=== PATIENT | female | born 1950 | race American Indian/Alaskan Native ===

== ENCOUNTER 2018-11-25 08:20 | Outpatient (CLI) | payer MEDICARE | END 2018-11-25 08:21 | disposition home or self-care (01) | LOC: RAD 08:20 ==

== ENCOUNTER 2018-12-04 11:43 | Inpatient (IN) | payer MEDICARE, MEDICAID ==
[2018-12-04] MEDS: Albuterol-Ipratrop 3 mg / 0.5 (3 ml) UD IH SCH ×3 (12:23→13:33)
[2018-12-04] MEDS ORDERED: Albuterol 0.083% Inhal Sol (2.5 mg/3 mL) UD INH STA (12:40)
[2018-12-04] MEDS ORDERED: Sodium Chloride 0.9% 1,000 ML IV STA (12:42)
--- NOTE | 2018-12-04 12:50 | ED PDOC ---
Arrival/HPI - General Chief Complaint: Dizziness/Lightheaded Historian: Patient - History of Present Illness Narrative History of Present Illness (Text): 12/04/18 12:53 68 year old female, whose past medical history includes hypertension, hyperlipidemia, diabetes, asthma, COPD and left lower extremity weakness post CVA, who presents to the emergency department complaining of shortness of breath and dizziness. Patient states earlier today she began feeling dizzy(which she had been experiencing intermittently for the past 2 weeks), the room was spinni ng, diaphoretic, and shortness of breath, which almost prompted a near syncopal episode. She notes secondary headache that radiates to her neck and shoulders and abdominal pain. Patient denies any fevers, chills, chest pain, nausea, vomiting, diarrhea, or any other complaint. PMD: Dr. Walton Specialist: Dr. Pepper Nguyễn(neurology) Time/Duration: Prior to Arrival Symptom Onset: Gradual Symptom Course: Unchanged Activities at Onset: Light Context: Home Past Medical History - Provider Review Nursing Documentation Reviewed: Yes - Travel History Have you recently traveled outside [place] w/in the past 3 mons?: No - Tetanus Immunization Tetanus Immunization: Unknown - Cardiac Hx Hypertension: Yes - Pulmonary Hx Asthma: Yes Hx Chronic Obstructive Pulmonary Disease (COPD): Yes - Neurological HX Cerebrovascular Accident: Yes (10/11/12) - HEENT Hx HEENT Disorder: No - Renal Hx Renal Disorder: No - Endocrine/Metabolic Hx Diabetes Mellitus Type 2: Yes Hx Hypothyroidism: Yes - Hematological/Oncological Hx Blood Disorders: No - Integumentary Hx Dermatological Disorder: No - Musculoskeletal/Rheumatological Hx Musculoskeletal Disorders: Yes Hx Back Pain: Yes Hx Degenerative Joint Disease: Yes Hx Falls: Yes Hx Unsteady Gait: Yes - Gastrointestinal Hx Gastrointestinal Disorders: No - Genitourinary/Gynecological Hx Genitourinary Disorders: Yes Other/Comment: Hysterectomy 2010 - Psychiatric Hx Psychophysiologic Disorder: Yes Hx Anxiety: Yes Hx Panic Disorder: Yes Hx Substance Use: No - Surgical History Hx Hysterectomy: Yes (2009) - Suicidal Assessment Feels Threatened In Home Enviroment: No Family/Social History - Physician Review Nursing Documentation Reviewed: Yes Family/Social History: No Known Family HX Smoking Status: Former Smoker Hx Alcohol Use: No Hx Substance Use: No Hx Substance Use Treatment: No Allergies/Home Meds Allergies/Adverse Reactions: Allergies budesonide [From Pulmicort] Adverse Reaction (Verified 12/06/18 20:17) VOMITING Home Medications: Home Meds Medication Instructions Recorded Confirmed Albuterol HFA [Ventolin HFA 90 90 mcg IH PRN PRN 12/04/18 12/04/18 mcg/actuation (8 g)] Albuterol/Ipratropium [Combivent 200 mcg IH PRN PRN 12/04/18 12/04/18 Respimat] Aspirin [Aspirin EC] 325 mg PO DAILY 12/04/18 12/04/18 Calcium Carbonate [Caltrate] 600 mg PO DAILY 12/04/18 12/04/18 Cholecalciferol [Vitamin D 1000 IU] 5,000 iu PO DAILY 12/04/18 12/04/18 Clopidogrel [Plavix] 75 mg PO DAILY 12/04/18 12/04/18 Famotidine [Pepcid] 40 mg PO DAILY 12/04/18 12/04/18 Levothyroxine [Synthroid] 125 mcg PO DAILY 12/04/18 12/04/18 Linagliptin [Tradjenta] 5 mg PO DAILY 12/04/18 12/04/18 Montelukast [Singulair] 10 mg PO DAILY 12/04/18 12/04/18 Simvastatin [Zocor] 40 mg PO DAILY 12/04/18 12/04/18 Review of Systems - Review of Systems Constitutional: absent: Fevers Respiratory: SOB Cardiovascular: absent: Chest Pain Gastrointestinal: Abdominal Pain. absent: Diarrhea, Nausea, Vomiting Neurological: Headache, Dizziness. absent: Speech Changes, Facial Droop Physical Exam Vital Signs Reviewed: Yes Vital Signs Temp Pulse Resp BP Pulse Ox 12/04/18 11:57 98.5 F 87 18 119/75 98 Temperature: Afebrile Blood Pressure: Normal Pulse: Regular Respiratory Rate: Normal Appearance: Positive for: Well-Appearing, Non-Toxic, Comfortable Pain Distress: None Mental Status: Positive for: Alert and Oriented X 3 - Systems Exam Head: Present: Atraumatic, Normocephalic Pupils: Present: PERRL Extroacular Muscles: Present: EOMI Conjunctiva: Present: Normal Mouth: Present: Moist Mucous Membranes Neck: Present: Normal Range of Motion Respiratory/Chest: Present: Clear to Auscultation, Wheezes (faint expiratory wheezes), Decreased Breath Sounds (diminished breath sounds bilaterally). No: Respiratory Distress, Accessory Muscle Use, Rales, Rhonchi Cardiovascular: Present: Regular Rate and Rhythm, Normal S1, S2. No: Murmurs Abdomen: Present: Tenderness (right upper quadrant tenderness). No: Distention, Peritoneal Signs, Rebound, Guarding Back: Present: Normal Inspection Upper Extremity: Present: Normal Inspection. No: Cyanosis, Edema Lower Extremity: Present: Normal Inspection, Other (brace on left lower extremity ). No: Edema Neurological: Present: GCS=15, CN II-XII Intact, Speech Normal (no dysarthria ), Motor Func Grossly Intact (3/5 tank bottom assembler on left upper extremity and leftt lower extremity, 5/5 in right upper & right lower extremity), Normal Sensory Function, Other (face is symmetrical ) Skin: Present: Warm, Dry, Normal Color. No: Rashes Psychiatric: Present: Alert, Oriented x 3, Normal Insight, Normal Concentration Medical Decision Making ED Course and Treatment: 12/04/18 12:47 Impression: 68 year old female who presents to the emergency department complaining of dizziness and shortness of breath. NIHSS: 2 Differential Diagnosis included but are not limited to: TIA Asthma Exacerbation Plan: -- Head CT w/o contrast -- Labs -- Chest X-ray -- Albuterol -- Antivert -- duoneb -- Reglan -- IV fluids -- Toradol -- predniSONE tab -- Urinalysis -- Reassess and disposition Prior Visits: Notes and results from previous visits were reviewed. Progress Notes: 12/04/18 14:35 Labs reviewed with no acute leukocytosis or electrolyte abnormalities. Due to patient's havig residual left sided weakness from her previous CVA and her symptoms ongoing for an extended amount of time and presents with no acute worsening symptoms or focal deficits that would warrant a Code Stroke at this time. There is no worsening of her left sided limb weakness, dysarthria or facial asymmetry at this time. Discussed patient case with Dr. Walton(PCP) who accepts patient for admission and requests Dr. Krish Nguyễn for neuro consult. - Lab Interpretations Lab Results: 12/04/18 13:46 12/04/18 13:46 Lab Results 12/04/18 14:15: Urine Color Yellow, Urine Appearance Clear, Urine pH 7.0, Ur Specific [place] 1.010, Urine Protein Negative, Urine Glucose (UA) Negative, Urine Ketones Negative, Urine Blood Negative, Urine Nitrate Negative, Urine Bilirubin Negative, Urine Urobilinogen 0.2, Ur Leukocyte Esterase Small H, Urine RBC 0 - 2, Urine WBC 10 - 15 H, Ur Epithelial Cells 6 - 8 H, Urine Bacteria Mod 12/04/18 13:46: Sodium 139, Potassium 4.9, Chloride 107, Carbon Dioxide 28, Anion Gap 10, BUN 14, Creatinine 1.0, Est GFR ( Amer) > 60, Est GFR (Non- Af Amer) 55, Random Glucose 117 H, Calcium 9.5, Total Bilirubin 0.3, AST 17, ALT 23, Alkaline Phosphatase 93, NT-Pro-B Natriuret Pep 64.6, Total Protein 6.9, Albumin 3.9, Globulin 3.1, Albumin/Globulin Ratio 1.3 12/04/18 13:46: WBC 9.4, RBC 3.89, Hgb 11.7 L, Hct 36.6, MCV 94.1, MCH 30.1, MCHC 32.0, RDW 14.8 H, Plt Count 346, MPV 9.8, Neut % (Auto) 68.2 H, Lymph % (Auto) 26.5, [place] % (Auto) 4.6, Eos % (Auto) 0.5 L, Baso % (Auto) 0.2, Lymph # (Auto) 2.5, [place] # (Auto) 0.4, Eos # (Auto) 0.1, Baso # (Auto) 0.02, Absolute Neuts (auto) 6.40 I have reviewed the lab results: Yes - RAD Interpretation Narrative RAD Interpretations (Text): 12/04/18 13:[address] w/o contrast reviewed by radiologist, shows: IMPRESSION: No acute intracranial findings 12/04/18 14:06 Chest X-ray reviewed by radiologist, shows: IMPRESSION: No active disease. Radiology Orders: 12/04/18 12:41 HEAD W/O CONTRAST [CT] Stat CHEST ONE VIEW [RAD] Stat Substation Operator Apprentice: Radiologist - EKG Interpretation EKG Interpretation (Text): 12/04/18 14:40 EKG performed at 12:08 reviewed by me, shows: NSR at 78bpm with no ST elevations and peaked T waves in V3-V4. Interpreted by ED Physician: Yes Type: 12 lead EKG - Medication Orders Current Medication Orders: Sodium Chloride (Sodium Chloride 0.9%) 1,000 mls @ 999 mls/hr IV .Q1H1M STA Stop: 12/04/18 13:42 Metoclopramide HCl (Reglan) 10 mg IVP STAT STA Stop: 12/04/18 12:42 Discontinued Medications Albuterol Sulfate (Albuterol 0.083% Inhal Mana (2.5 Mg/3 Ml) Ud) 2.5 mg INH STAT STA Stop: 12/04/18 12:41 Albuterol/Ipratropium (Duoneb 3 Mg/0.5 Mg (3 Ml) Ud) 3 ml IH Q15M CARLA Stop: 12/04/18 12:46 Last Admin: 12/04/18 12:42 Dose: 3 ml Ketorolac Tromethamine (Toradol) 30 mg IVP STAT STA Stop: 12/04/18 12:42 Meclizine HCl (Antivert) 25 mg PO STAT STA Stop: 12/04/18 12:11 Last Admin: 12/04/18 12:23 Dose: 25 mg Prednisone (Prednisone Tab) 60 mg PO STAT ONE Stop: 12/04/18 12:11 Last Admin: 12/04/18 12:20 Dose: 60 mg NIHSS Stroke Scale 3 - Date/Time Evaluation Performed Date Performed: 12/04/18 Time Performed: 12:00 When Was NIHSS Performed: Baseline - How Severe is the Stroke Level of Consciousness: 0=Alert LOC to Questions: 0=Both comments correct LOC to commands: 0=Obeys both correctly Best Gaze: 0=Normal Visual: 0=No visual loss Facial: 0=Normal Motor Arm - Left: 1=Drift noted before 10 sec Motor Arm - Right: 0=No drift Motor Leg - Left: 1=Drift before 5 sec Motor Leg - Right: 0=No drift Limb Ataxia: 0=Absent Sensory: 0=Normal Best Language: 0=No aphasia Dysarthia: 0=Normal articulation Extinction & Inattention (Neglect): 0=Normal, no object Score: 2 - Scribe Statement The provider has reviewed the documentation as recorded by the Scribbilly Rosado Provider Scribe Attestation: All medical record entries made by the Scribe were at my direction and personally dictated by me. I have reviewed the chart and agree that the record accurately reflects my personal performance of the history, physical exam, medical decision making, and the department course for this patient. I have also personally directed, reviewed, and agree with the discharge instructions and disposition. Disposition/Present on Arrival - Present on Arrival Any Indicators Present on Arrival: No History of DVT/PE: No History of Uncontrolled Diabetes: No Urinary Catheter: No History of Decub. Ulcer: No History Surgical Site Infection Following: None - Disposition Have Diagnosis and Disposition been Completed?: Yes Diagnosis: TIA (transient ischemic attack) Disposition: HOSPITALIZED Disposition Time: 14:30 Patient Plan: Admission Condition: FAIR
--- NOTE | 2018-12-04 13:20 | CT ---
Date of service: 12/04/2018 PROCEDURE: CT HEAD WITHOUT CONTRAST. HISTORY: headache COMPARISON: 11/10/2016 TECHNIQUE: Axial computed tomography images were obtained through the head/brain without intravenous contrast. Radiation dose: Total exam DLP = 843.84 mGy-cm. This CT exam was performed using one or more of the following dose reduction techniques: Automated exposure control, adjustment of the mA and/or kV according to patient size, and/or use of iterative reconstruction technique. FINDINGS: HEMORRHAGE: No intracranial hemorrhage. BRAIN: No mass effect or edema. Chronic microvascular changes are seen in the periventricular white matter. VENTRICLES: Unremarkable. No hydrocephalus. CALVARIUM: Unremarkable. PARANASAL SINUSES: Unremarkable as visualized. No significant inflammatory changes. MASTOID AIR CELLS: Unremarkable as visualized. No inflammatory changes. OTHER FINDINGS: None. IMPRESSION: No acute intracranial findings
--- NOTE | 2018-12-04 13:59 | RAD ---
Date of service: 12/04/2018 PROCEDURE: CHEST RADIOGRAPH, 1 VIEW HISTORY: cough COMPARISON: 11/10/2016 FINDINGS: LUNGS: Clear. PLEURA: No pneumothorax or pleural fluid seen. CARDIOVASCULAR: No aortic atherosclerotic calcification present. Normal. OSSEOUS STRUCTURES: No significant abnormalities. VISUALIZED UPPER ABDOMEN: Normal. OTHER FINDINGS: None. IMPRESSION: No active disease.
[2018-12-04 14:05] LABS: BASO # 0.02 K/mm3 (0.0-2.0); BASO % 0.2 % (0.0-3.0); EOS # 0.1 (0.0-0.7); EOS % 0.5 % (1.5-5.0); HEMOGLOBIN 11.7 g/dL (12.0-16.0); LYMPH # 2.5 (1.2-3.4); LYMPH % 26.5 % (22.0-35.0); MEAN CELL VOLUME 94.1 fl (80.0-105.0); MEAN CORPUSCULAR HEMOGLOBIN 30.1 pg (25.0-35.0); MEAN PLATELET VOLUME 9.8 fl (7.0-11.0); MONO # 0.4 (0.1-0.6); MONO % 4.6 % (1.0-6.0); RBC 3.89 10^6/uL (3.5-6.1); RED CELL DISTRIBUTION WIDTH 14.8 % (11.5-14.5); WHITE BLOOD COUNT 9.4 10^3/uL (4.5-11.0)
[2018-12-04 14:08] LABS: ALB/GLOB RATIO 1.3 (1.1-1.8); ALBUMIN 3.9 g/dL (3.0-4.8); ALT/SGPT 23 U/L (7-56); AST/SGOT 17 U/L (14-36); BLOOD UREA NITROGEN 14 mg/dL (7-21); CALCIUM 9.5 mg/dL (8.4-10.5); GFR NON-AFRICAN AMERICAN 55
[2018-12-04 14:17] LABS: B-TYPE NATRIURETIC PEPTIDE 64.6 pg/mL (0-450)
[2018-12-04 14:21] LABS: URINE BILIRUBIN NEGATIVE (NEGATIVE); URINE BLOOD NEGATIVE (NEGATIVE); URINE GLUCOSE (UA) NEGATIVE (NEGATIVE); URINE LEUKOCYTE ESTERASE SMALL Leu/uL (NEGATIVE); URINE PROTEIN NEGATIVE mg/dL (<30 mg/dL); URINE UROBILINOGEN 0.2 E.U./dL (<1 E.U./dL)
[2018-12-04 14:23] LABS: URINE APPEARANCE CLEAR (CLEAR); URINE COLOR YELLOW (YELLOW)
[2018-12-04 14:26] LABS: URINE BACTERIA MOD /hpf; URINE RBC 0 - 2 /hpf (0-2)
[2018-12-04] MEDS ORDERED: Dextrose 50% SYRINGE Inj (50 ml) IV PRN (16:04)
[2018-12-04 16:13] LABS: HDL CHOLESTEROL 46 mg/dL (29-60)
[2018-12-04 16:24] LABS: LDL CHOLESTEROL 67 mg/dL (0-129)
[2018-12-04 16:25] VITALS: BMI 32.5
[2018-12-04] MEDS: Albuterol 0.083% Inhal Sol (2.5 mg/3 mL) UD INH SCH (19:57)
--- NOTE | 2018-12-04 22:18 | CARD ---
APPROVED REPORT Date of service: 12/04/2018 EKG Measurement Heart [id number] <Conclusion> Normal sinus rhythm Normal ECG
--- NOTE | 2018-12-04 23:22 | CON ---
DATE: 12/04/2018 HISTORY OF PRESENT ILLNESS: A 68-year-old black female with past medical history of hypertension, hyperlipidemia, diabetes, asthma, COPD, and had previous stroke with residual left-sided weakness, came to the emergency room with complaining of dizziness, and feeling dizzy for the past 1 or 2 weeks and also felt today spinning of the sensation and shortness of breath and almost near syncopal episode, came to the hospital. PAST MEDICAL HISTORY: As above. ALLERGIES: NO KNOWN DRUG ALLERGIES. HOME MEDICATIONS: Aspirin, Pepcid, Synthroid, Zocor, Norvasc, and hydralazine. LABORATORY DATA: WBC 9.4, hemoglobin 11.7, hematocrit 36.6 ,and platelets 346. Sodium 139, potassium 4.9, chloride 107, CO2 of 28, glucose 117, BUN 14, creatinine 1. CAT scan of the head was done which did not show any acute findings. IMPRESSION AND PLAN: Dizziness, less likely may be a presyncopal episode. CAT scan showed no bleed or stroke. Workup in progress. Continue present management. We will follow up. Justus Nguyễn MD
[2018-12-05] MEDS: Albuterol 0.083% Inhal Sol (2.5 mg/3 mL) UD INH SCH ×6 (01:46→23:32)
[2018-12-05 08:56] LABS: TROPONIN I < 0.01 ng/mL
[2018-12-05] MEDS: Cholecalciferol 1,000 INTLU TAB PO SCH (10:05)
[2018-12-05] MEDS: Aspirin 325 mg EC Tablets PO SCH (10:05)
[2018-12-05] MEDS: Levothyroxine 125 MCG TAB PO SCH (10:06)
[2018-12-05] MEDS ORDERED: Dextrose 50% SYRINGE Inj (50 ml) IV PRN (12:47)
[2018-12-05] MEDS ORDERED: Insulin Detemir 100 units/ml Vial (Levemir) SC SCH (13:00)
[2018-12-05] MEDS: Insulin Lispro (humaLOG) LOW Coverage SC SCH ×3 (14:06→22:00)
[2018-12-05] MEDS: Albuterol-Ipratrop 3 mg / 0.5 (3 ml) UD IH SCH (19:51)
[2018-12-05] MEDS: Insulin Detemir 100 units/ml Vial (Levemir) SC SCH (22:59)
[2018-12-06] MEDS: Albuterol 0.083% Inhal Sol (2.5 mg/3 mL) UD INH SCH ×2 (01:16→07:57)
--- NOTE | 2018-12-06 03:55 | CON ---
DATE OF CONSULTATION: 12/05/2018 CARDIOLOGY CONSULTATION REASON FOR CONSULTATION: Dizziness. HISTORY OF PRESENT ILLNESS: The patient is a 68-year-old female, who has history of hypertension, history of CVA in 2012 with residual left hemiparesis, for which the patient uses a left leg bracelet. The patient presents because of dizziness for the past 3 days. She denies any imbalance, speech difficulty, or new arm or leg weakness. The patient is unaware of any history of heart attack in the past and denies any retrosternal chest pain. The patient does not recall experiencing palpitation given her dizziness. SOCIAL HISTORY: Nonsmoker. MEDICATIONS: Albuterol inhaler every 6 hours p.r.n., aspirin 625 mg once a day, Lipitor 20 mg once a day, Norvasc at 5 mg once a day, Pepcid 20 mg once a day, Plavix 75 mg once a day, Synthroid 125 mcg once a day, vitamin D 5000 international units orally daily. SOCIAL HISTORY: The patient is a former smoker, who quit after she had her stroke in 2014. REVIEW OF SYSTEMS: No fever or chills. No nausea or vomiting. PHYSICAL EXAMINATION: GENERAL: The patient is an elderly female, who does not appear to be in acute distress. VITAL SIGNS: Blood pressure 138/81, heart rate 86, temperature 98.7, respirations 20. HEENT: Normocephalic. CHEST: Clear. HEART: S1 and S2 are regular. ABDOMEN: Soft. EXTREMITIES: Show no edema. LABORATORY DATA: SMA-7 is entirely within normal limits except for a glucose of 117. Lipid profile is within normal limits. One set of troponin is negative. Admitting hemoglobin and hematocrit are 11.7 and 36.6, white count and platelet count are within normal limits. Carotid Doppler was performed, the report is still pending. Head CT scan without contrast, no acute findings. EKG revealed normal sinus rhythm at a rate of 66. Echocardiogram study performed in 10/2016 revealed mild concentric LVH with normal ejection fraction, trace aortic insufficiency. ASSESSMENT: 1. Dizziness for the past 3 days. No reported arrhythmia on the monitor. 2. History of old cerebrovascular accident in 2012 with residual left hemiparesis. 3. Hypertension. 4. Uncontrolled diabetes mellitus. RECOMMENDATIONS: Continue current aspirin 325 mg once a day, Lipitor 20 mg once a day, Norvasc 5 mg once a day, Synthroid 125 mcg once a day, Plavix 75 mg once a day. If the carotid Doppler report is unremarkable, the patient can be discharged on current medical management from the cardiac point of view only. Santiago Eli MD
[2018-12-06] MEDS: Albuterol-Ipratrop 3 mg / 0.5 (3 ml) UD IH SCH ×2 (07:57→11:42)
[2018-12-06] MEDS: Insulin Lispro (humaLOG) LOW Coverage SC SCH ×4 (08:12→21:36)
[2018-12-06] MEDS: Levothyroxine 125 MCG TAB PO SCH (09:31)
[2018-12-06] MEDS: Cholecalciferol 1,000 INTLU TAB PO SCH (09:38)
[2018-12-06] MEDS: Aspirin 325 mg EC Tablets PO SCH (09:38)
[2018-12-06] MEDS ORDERED: Budesonide 0.5 mg/2 ml Inhal Susp UD IH SCH (14:00)
[2018-12-06] MEDS ORDERED: POLYETHYLENE GLYCOL 3350 17 GM/Dose PACKET PO STA (14:20)
[2018-12-06] MEDS: Enoxaparin 40 mg Syringe SC SCH (14:27)
--- NOTE | 2018-12-06 15:10 | US ---
PROCEDURE: Bilateral carotid artery duplex ultrasound HISTORY: Carotid stenosis PHYSICIAN(S): Christopher Chavez MD. TECHNIQUE: Duplex sonography and color-flow Doppler were used to evaluate the carotid bifurcations and limited segments of the vertebral arteries bilaterally. FINDINGS: The exam is somewhat limited by tortuous vessels There is mild smooth heterogeneous plaque noted at the carotid bifurcations bilaterally. The peak systolic velocity in the proximal right internal carotid artery is 78 cm/sec. This corresponds to a 20 to 39% proximal right ICA stenosis. Normal systolic velocities are noted in the proximal right external carotid artery. There is antegrade flow in the right vertebral artery. The peak systolic velocity in the proximal left internal carotid artery is 77 cm/sec. This corresponds to a 20 to 39% proximal left ICA stenosis. Normal systolic velocities are noted in the proximal left external carotid artery. There is antegrade flow in the left vertebral artery. IMPRESSION: 1. Bilateral 20-39% proximal ICA stenoses. 2. Antegrade flow in both vertebral arteries.
[2018-12-06] MEDS: Albuterol 0.083% Inhal Sol (2.5 mg/3 mL) UD INH PRN ×2 (15:21→23:37)
[2018-12-06] MEDS: POLYETHYLENE GLYCOL 3350 17 GM/Dose PACKET PO SCH (17:29)
[2018-12-06] MEDS: Arformoterol 15 mcg/2 ml Inh Sol IH SCH (19:39)
[2018-12-06] MEDS ORDERED: Arformoterol 15 mcg/2 ml Inh Sol IH SCH (20:00)
--- NOTE | 2018-12-06 20:27 | CP.PCM.PN ---
<Alex Schultz - Last Filed: 12/06/18 20:25> Subjective - Date & Time of Evaluation Date of Evaluation: 12/06/18 Time of Evaluation: 20:25 - Subjective Subjective: PGY-1 Night Float Resident Note Paged overnight for patient with reaction to pulmicort. Patient with nausea/vomiting. She is not SOB at this time. Pulmicort held for adverse patient reaction. Objective - Vital Signs/Intake and Output Vital Signs (last 24 hours): Temp Pulse Resp BP Pulse Ox 98.9 F 81 19 117/78 96 12/06/18 17:21 12/06/18 18:00 12/06/18 17:21 12/06/18 17:36 12/06/18 17:21 - Medications Medications: Current Medications Albuterol Sulfate (Albuterol 0.083% Inhal Mana (2.5 Mg/3 Ml) Ud) 2.5 mg INH [id number] PRN PRN Reason: Shortness of Breath Last Admin: 12/06/18 15:21 Dose: 2.5 mg Amlodipine Besylate (Norvasc) 5 mg PO DAILY [facility] Last Admin: 12/06/18 09:30 Dose: 5 mg Arformoterol Tartrate (Brovana) 15 mcg IH [id number] [facility] Last Admin: 12/06/18 19:39 Dose: 15 mcg Aspirin (Ecotrin) 325 mg PO DAILY [facility] Last Admin: 12/06/18 09:38 Dose: 325 mg Atorvastatin Calcium (Lipitor) 20 mg PO DIN [facility] Last Admin: 12/06/18 17:28 Dose: 20 mg Calcium Carbonate (Caltrate) 600 mg PO DAILY [facility] Last Admin: 12/06/18 09:29 Dose: 600 mg Cholecalciferol (Vitamin D) 5,000 intlu PO DAILY [facility] Last Admin: 12/06/18 09:38 Dose: Not Given Clopidogrel Bisulfate (Plavix) 75 mg PO DAILY [facility] Last Admin: 12/06/18 09:31 Dose: 75 mg Dextrose (Dextrose 50% Inj) 0 ml IV STAT PRN; Protocol PRN Reason: Hypoglycemia Protocol Diltiazem HCl (Cardizem) 30 mg PO QID [facility] Last Admin: 12/06/18 17:36 Dose: 30 mg Enoxaparin Sodium (Lovenox) 40 mg SC DAILY [facility]; Protocol Last Admin: 12/06/18 14:27 Dose: 40 mg Famotidine (Pepcid) 20 mg PO DAILY [facility] Last Admin: 12/06/18 09:30 Dose: 20 mg Hydralazine HCl (Apresoline) 10 mg PO Q6H PRN PRN Reason: HTN Dextrose (Dextrose 5% In Water 1000 Ml) 1,000 mls @ 0 mls/hr IV .Q0M PRN; Protocol PRN Reason: Hypoglycemia Protocol Insulin Detemir (Levemir) 10 unit SC HS [facility] Last Admin: 12/05/18 22:59 Dose: 10 u Insulin Human Lispro (Humalog Low) 0 units SC ACHS [facility]; Protocol Last Admin: 12/06/18 16:39 Dose: Not Given Levothyroxine Sodium (Synthroid) 125 mcg PO DAILY [facility] Last Admin: 12/06/18 09:31 Dose: 125 mcg Meclizine HCl (Antivert) 25 mg PO TID [facility] Last Admin: 12/06/18 17:28 Dose: 25 mg Methylprednisolone (Solu-Medrol) 30 mg IV Q12 [facility] Montelukast Sodium (Singulair) 10 mg PO DAILY [facility] Last Admin: 12/06/18 09:31 Dose: 10 mg Non-Formulary Medication (Linagliptin [Tradjenta]) 5 mg PO DAILY [facility] Last Admin: 12/06/18 10:00 Dose: Not Given Polyethylene Glycol (Miralax) 17 gm PO BID [facility] Last Admin: 12/06/18 17:29 Dose: Not Given Zolpidem Tartrate (Ambien) 5 mg PO HS PRN; Protocol PRN Reason: Insomnia - Labs Labs: 12/04/18 13:46 12/04/18 13:46 <Velma Khan - Last Filed: 12/07/18 06:42> Objective - Vital Signs/Intake and Output Vital Signs (last 24 hours): Temp Pulse Resp BP Pulse Ox 98.9 F 76 19 111/76 96 12/06/18 17:21 12/07/18 06:00 12/06/18 17:21 12/06/18 21:36 12/06/18 17:21 Intake and Output: 12/06/18 12/07/18 18:59 06:59 Intake Total 0 Balance 0 - Medications Medications: Current Medications Albuterol Sulfate (Albuterol 0.083% Inhal Mana (2.5 Mg/3 Ml) Ud) 2.5 mg INH [id number] PRN PRN Reason: Shortness of Breath Last Admin: 12/06/18 23:37 Dose: 2.5 mg Amlodipine Besylate (Norvasc) 5 mg PO DAILY [facility] Last Admin: 12/06/18 09:30 Dose: 5 mg Arformoterol Tartrate (Brovana) 15 mcg IH [id number] [facility] Last Admin: 12/06/18 19:39 Dose: 15 mcg Aspirin (Ecotrin) 325 mg PO DAILY [facility] Last Admin: 12/06/18 09:38 Dose: 325 mg Atorvastatin Calcium (Lipitor) 20 mg PO DIN [facility] Last Admin: 12/06/18 17:28 Dose: 20 mg Calcium Carbonate (Caltrate) 600 mg PO DAILY [facility] Last Admin: 12/06/18 09:29 Dose: 600 mg Cholecalciferol (Vitamin D) 5,000 intlu PO DAILY [facility] Last Admin: 12/06/18 09:38 Dose: Not Given Clopidogrel Bisulfate (Plavix) 75 mg PO DAILY [facility] Last Admin: 12/06/18 09:31 Dose: 75 mg Dextrose (Dextrose 50% Inj) 0 ml IV STAT PRN; Protocol PRN Reason: Hypoglycemia Protocol Diltiazem HCl (Cardizem) 30 mg PO QID [facility] Last Admin: 12/06/18 21:36 Dose: 30 mg Enoxaparin Sodium (Lovenox) 40 mg SC DAILY [facility]; Protocol Last Admin: 12/06/18 14:27 Dose: 40 mg Famotidine (Pepcid) 20 mg PO DAILY [facility] Last Admin: 12/06/18 09:30 Dose: 20 mg Hydralazine HCl (Apresoline) 10 mg PO Q6H PRN PRN Reason: HTN Dextrose (Dextrose 5% In Water 1000 Ml) 1,000 mls @ 0 mls/hr IV .Q0M PRN; Protocol PRN Reason: Hypoglycemia Protocol Insulin Detemir (Levemir) 10 unit SC HS [facility] Last Admin: 12/06/18 21:40 Dose: 10 u Insulin Human Lispro (Humalog Low) 0 units SC ACHS [facility]; Protocol Last Admin: 12/06/18 21:36 Dose: Not Given Levothyroxine Sodium (Synthroid) 125 mcg PO DAILY [facility] Last Admin: 12/06/18 09:31 Dose: 125 mcg Meclizine HCl (Antivert) 25 mg PO TID [facility] Last Admin: 12/06/18 17:28 Dose: 25 mg Methylprednisolone (Solu-Medrol) 30 mg IV Q12 [facility] Montelukast Sodium (Singulair) 10 mg PO DAILY [facility] Last Admin: 12/06/18 09:31 Dose: 10 mg Non-Formulary Medication (Linagliptin [Tradjenta]) 5 mg PO DAILY [facility] Last Admin: 12/06/18 10:00 Dose: Not Given Polyethylene Glycol (Miralax) 17 gm PO BID [facility] Last Admin: 12/06/18 17:29 Dose: Not Given Zolpidem Tartrate (Ambien) 5 mg PO HS PRN; Protocol PRN Reason: Insomnia - Labs Labs: 12/04/18 13:46 12/04/18 13:46 Attending/Attestation - Attestation I have personally seen and examined this patient.: No I have fully participated in the care of the patient.: No I have reviewed all pertinent clinical information, including history, physical exam and plan: No
[2018-12-06] MEDS: Insulin Detemir 100 units/ml Vial (Levemir) SC SCH (21:40)
[2018-12-06] MEDS ORDERED: MethylPREDNISolone 40 mg Vial IV SCH (22:00)
--- NOTE | 2018-12-06 22:34 | PN ---
DATE: 12/06/2018 SUBJECTIVE: The patient is describing symptoms of vertigo and imbalanced gait. PHYSICAL EXAMINATION: VITAL SIGNS: Blood pressure 139/85, heart rate 102, temperature 98.7, respirations 20. HEENT: Normocephalic. CHEST: Clear. HEART: S1 and S2 regular. EXTREMITIES: No edema. LABORATORY DATA: Today's blood sugar is 103 and 174 respectively. Carotid Doppler ultrasound is still pending. ASSESSMENT: 1. Recurrent vertigo. 2. History of cerebrovascular accident in 2012 with residual left hemiparesis. 3. Hypertension. 4. Uncontrolled diabetes mellitus. RECOMMENDATIONS: Continue current Antivert 25 mg t.i.d., Ambien 5 mg once a day, albuterol inhaler, aspirin 325 mg once a day, Lipitor 20 mg daily, Norvasc 5 mg once a day, Plavix 75 mg once a day, Synthroid 125 mcg once a day, and atenolol 25 mg once a day. Santiago Eli MD
[2018-12-07] MEDS: Arformoterol 15 mcg/2 ml Inh Sol IH SCH ×2 (07:33→20:47)
[2018-12-07 08:04] VITALS: RESP 20
[2018-12-07] MEDS: Insulin Lispro (humaLOG) LOW Coverage SC SCH ×4 (08:05→21:49)
[2018-12-07] MEDS: Levothyroxine 125 MCG TAB PO SCH (11:00)
[2018-12-07] MEDS: diltiaZEM 120 mg/24 Hours CD Cap PO SCH (11:00)
[2018-12-07] MEDS: Aspirin 325 mg EC Tablets PO SCH (11:01)
[2018-12-07] MEDS: POLYETHYLENE GLYCOL 3350 17 GM/Dose PACKET PO SCH ×2 (11:02→17:58)
[2018-12-07] MEDS: Cholecalciferol 1,000 INTLU TAB PO SCH (11:05)
[2018-12-07] MEDS: Enoxaparin 40 mg Syringe SC SCH (11:05)
[2018-12-07 11:09] LABS: BLOOD UREA NITROGEN 28 mg/dL (7-21); CALCIUM 9.4 mg/dL (8.4-10.5); GFR NON-AFRICAN AMERICAN 50
[2018-12-07] MEDS: Tobramycin 0.3% OPHT SOLN OD SCH ×3 (14:36→21:55)
[2018-12-07] MEDS: MethylPREDNISolone 40 mg Vial IVP SCH ×2 (14:36→21:50)
--- NOTE | 2018-12-07 14:56 | PN ---
DATE: 12/06/2018 SUBJECTIVE: The patient sitting in a chair. She is using the walker. She still feels dizzy, unsteady. The patient lives by herself. She is also on the bedside. The patient denies any fever or any cough other than usual. PHYSICAL EXAMINATION: VITAL SIGNS: Temperature is 98.7, heart rate is 102, blood pressure 146/92, respirations 20, saturation 96% on room air. HEAD AND NECK: Normal. No JVD. No thyromegaly. CHEST: Bilateral mild wheeze, expiratory. There is prolonged expiration. CARDIAC: First sound and second sound is normal. Tachycardic. ABDOMEN: Soft, obese. Nontender. EXTREMITIES: No edema. NEUROLOGIC: Left hemiplegia. IMPRESSION: 1. Dizziness, lightheadedness, presyncope. The patient had carotid ultrasound. Results still pending. 2. Also seen by Cardiology, stable. 3. Anemia, diabetes, hypertension, tachycardia. Continue current medications. We will switch the Norvasc, try to change it to Cardizem which controls the heart rate. 4. Chronic obstructive pulmonary disease, marked chronic obstructive pulmonary disease exacerbation. We will give her intravenous steroids with Brovana and Pulmicort. Continue nebulizer treatment as needed and we will give sleep apnea machine at night. Continue current therapy. Continue gastrointestinal and deep venous thrombosis prophylaxis. The patient will be getting physical therapy. We will continue current therapy and we will followup clinically. Discussed with the daughter in detail. The patient lives by herself. She feels unsteady for discharge. Continue followup. Lab work in the morning. Conor Walton MD
[2018-12-07] MEDS ORDERED: Tobramycin 0.3% OPH OINT OD SCH (16:00)
--- NOTE | 2018-12-07 18:34 | HP ---
DATE OF EXAM: 12/05/2018 CHIEF COMPLAINT: The patient's main complaint is dizziness, lightheadedness, and unsteady. HISTORY OF PRESENT ILLNESS: Laura Bassett is a 68-year-old female with history of hypertension, CVA in the past, and has hemiplegia, uses a walker, came into the hospital because she got up in the morning and she felt dizzy. She feels lightheaded when she stands up and moves and walks. She lives by herself. She felt like she lost her consciousness, but she was able to move right away and did well. The patient has these intermittent feelings on and off. She came to the ER for evaluation. She also had the feeling of occasionally from when she gets out of the bed and moves she feels lightheaded; sometimes she feels tingling around her head or the room spins around her and that takes some time and ten minutes later she starts to feel better and she moves on. The patient lives by herself. She gives a history of other comorbid illnesses including asthma, COPD, obstructive sleep apnea, hypertension, diabetes, and arthritis. PAST MEDICAL HISTORY: The patient has history of CVA, COPD, asthma, obstructive sleep apnea, diabetes on insulin, hypertension, hypercholesterolemia, osteoarthritis, obesity, depression, and osteoporosis. HOME MEDICATIONS: She is on Norvasc 10 mg, Zocor 40 mg, Singulair 10 mg, Trajenta 5 mg, levothyroxine 125 mcg, Pepcid 40 mg, Plavix 75 mg, albuterol 200 mg, calcium carbonate 600 mg, aspirin 325 mg, albuterol as intervening inhalers. ALLERGIES: THE PATIENT HAS ALLERGY TO BUDESONIDE. NOT CLEAR WHAT ALLERGY REACTIONS, BUT SHE DOES HAVE ALLERGY TO THAT. REVIEW OF SYSTEMS: As I mentioned before, she does have wheezing on and off. She has difficulty ambulation, back pain, knee pain, and right hip pain. PHYSICAL EXAMINATION VITAL SIGNS: The patient's temperature is 98, heart rate 106, blood pressure 154/78, respiration 18, and saturation 95% on room air. HEAD AND NECK: Normal. No JVD. No thyromegaly. CHEST: Mild rhonchi, especially with movement to the bathroom. CARDIAC: First sound and second sound normal. No murmur, rub, or gallop. ABDOMEN: Obese and nontender. EXTREMITIES: No edema. NEUROLOGIC: She does have left hemiplegia, but she is able to move her arms and able to walk with a walker. LABORATORY DATA: White count 9.4, hemoglobin 11.7, hematocrit 36.6, and platelets 346. Chemistry; sodium 139, potassium 4.9, chloride 107, bicarb 28, BUN 14, creatinine 1, and blood sugar 117. Liver function test is normal. Troponin is normal. CT of the head which was negative. Chest x-ray showed no active disease. EKG shows sinus rhythm and sinus tachycardia. IMPRESSION AND PLAN 1. Presyncope. I will get Neurology consultations and Cardiology consultations. We will follow up with them. 2. Hypertension. Continue current medications. We will monitor her blood pressure; sometimes it does go up to a higher level. 3. Diabetes, insulin dependent. Continue insulin coverage. 4. Hypercholesterolemia, chronic obstructive pulmonary disease, and obstructive sleep apnea. Continue nebulizers and continuous positive airway pressure machine. Conor Walton MD
--- NOTE | 2018-12-07 19:31 | PN ---
DATE: 12/07/2018 SUBJECTIVE: The patient is asymptomatic. She does become tachycardic with any kind of activity. PHYSICAL EXAMINATION: VITAL SIGNS: Blood pressure 115/78, heart rate is currently in the 80s, normal sinus rhythm. NECK: Negative JVD. LUNGS: Without rales. HEART: S1 and S2. EXTREMITIES: Without edema. LABORATORY DATA: Glucose is 265, hemoglobin is 11.7. IMPRESSION: 1. Transient dizziness. 2. Diabetes mellitus. 3. Obesity. 4. Anemia. 5. History of hyperthyroidism. 6. Hypercholesterolemia. 7. Hypertension. PLAN: Given these findings, the patient is being transferred to the TCU today. We will check her thyroid function test to rule the cause of her intermittent tachycardia. Given the patient's cardiac risk factors, the patient would benefit from an outpatient stress test and an echocardiogram once her current symptoms are resolved. Christopher Adan MD
[2018-12-07] MEDS: Insulin Detemir 100 units/ml Vial (Levemir) SC SCH (21:49)
[2018-12-07] MEDS: Tobramycin 0.3% OPH OINT OD SCH (22:25)
[2018-12-08] MEDS: Albuterol 0.083% Inhal Sol (2.5 mg/3 mL) UD INH PRN (02:10)
[2018-12-08] MEDS: Tobramycin 0.3% OPHT SOLN OD SCH ×3 (05:52→21:43)
[2018-12-08] MEDS: Arformoterol 15 mcg/2 ml Inh Sol IH SCH ×2 (07:37→20:30)
[2018-12-08] MEDS: Insulin Lispro (humaLOG) LOW Coverage SC SCH ×4 (09:01→21:35)
[2018-12-08] MEDS: Cholecalciferol 1,000 INTLU TAB PO SCH (09:55)
[2018-12-08] MEDS: diltiaZEM 120 mg/24 Hours CD Cap PO SCH (09:56)
[2018-12-08] MEDS: Aspirin 325 mg EC Tablets PO SCH (09:57)
[2018-12-08] MEDS: Enoxaparin 40 mg Syringe SC SCH (09:58)
[2018-12-08] MEDS: POLYETHYLENE GLYCOL 3350 17 GM/Dose PACKET PO SCH ×2 (10:00→18:13)
[2018-12-08] MEDS: MethylPREDNISolone 40 mg Vial IVP SCH ×2 (10:02→21:41)
[2018-12-08] MEDS: Levothyroxine 125 MCG TAB PO SCH (10:02)
--- NOTE | 2018-12-08 13:05 | PN ---
DATE: 12/08/2018 SUBJECTIVE: The patient complained of right eye, itchy, irritated redness. Otherwise, she feels better. She is much less dizzy than before. Her breathing is improving. She did have vomiting with Pulmicort, so we stopped the Pulmicort. No other complaint. PHYSICAL EXAMINATION: VITAL SIGNS: Temperature 97.3, heart rate 80, blood pressure 115/78, respirations 20, saturation 98%. HEENT: Head and neck exam is normal. No JVD. No thyromegaly. Right eye has red conjunctivae and cornea is clear. She sees very well with it. CHEST: Bilaterally unclear. CARDIAC: First and second sound normal. ABDOMEN: Soft and nontender. EXTREMITIES: No edema. NEUROLOGIC: Left hemiplegia. IMPRESSION AND PLAN: 1. Acute conjunctivitis. We will give tobramycin eye drops and ointment at night. We will see how she responds. 2. Lightheadedness and dizziness. We will discontinue Norvasc. Continue Cardizem 120 mg. We will monitor the blood pressure, blood pressure seems stable. 3. Mild asthma exacerbation, continue steroids IV and we will continue inhaled bronchodilators. 4. Obstructive sleep apnea, the patient is getting bilevel positive airway pressure machine. The patient has gait problems. She lives by herself. She is unsteady. We need to continue physical therapy. Transitional care unit will be good for her to continue treatment and get exercise and physical therapy. 5. Diabetes, continue insulin coverage. 6. Hypercholesterolemia. 7. Hypothyroidism. 8. Plan is to continue current medications. Follow up clinically for her left-sided cerebrovascular accident, stroke and left-sided weakness. Continue aspirin and Plavix. Conor Walton MD
--- NOTE | 2018-12-08 16:02 | CP.PCM.PCO ---
Physician Communication Note - Physician Communication Note Physician Communication Note: transient dizziness, bp meds adjsuted. stable sign offf.
[2018-12-08] MEDS ORDERED: Bisacodyl 5mg EC Tab PO PRN (16:28)
[2018-12-08] MEDS: Insulin Detemir 100 units/ml Vial (Levemir) SC SCH (21:41)
[2018-12-08] MEDS: Tobramycin 0.3% OPH OINT OD SCH (21:43)
[2018-12-08] MEDS: Hydrocerin(120 gm) TOP SCH (23:20)
[2018-12-09] MEDS: Tobramycin 0.3% OPHT SOLN OD SCH ×2 (06:33→21:29)
[2018-12-09] MEDS: Arformoterol 15 mcg/2 ml Inh Sol IH SCH ×2 (08:01→19:20)
[2018-12-09] MEDS: Albuterol 0.083% Inhal Sol (2.5 mg/3 mL) UD INH PRN ×2 (08:01→19:20)
[2018-12-09] MEDS: Insulin Lispro (humaLOG) LOW Coverage SC SCH ×2 (08:54→12:15)
[2018-12-09] MEDS: diltiaZEM 120 mg/24 Hours CD Cap PO SCH (09:29)
[2018-12-09] MEDS: Aspirin 325 mg EC Tablets PO SCH (09:30)
[2018-12-09] MEDS: POLYETHYLENE GLYCOL 3350 17 GM/Dose PACKET PO SCH ×2 (09:31→17:35)
[2018-12-09] MEDS: Enoxaparin 40 mg Syringe SC SCH (09:31)
[2018-12-09] MEDS: MethylPREDNISolone 40 mg Vial IVP SCH ×2 (09:34→21:29)
[2018-12-09] MEDS: Levothyroxine 125 MCG TAB PO SCH (09:35)
[2018-12-09] MEDS: Cholecalciferol 1,000 INTLU TAB PO SCH (09:35)
[2018-12-09] MEDS ORDERED: Insulin Lispro 1 UNITS/0.01 ML SC STA (12:27)
[2018-12-09] MEDS: Insulin Lispro (humaLOG) MEDIUM Coverage SC SCH ×2 (17:34→21:50)
--- NOTE | 2018-12-09 21:21 | PN ---
DATE: 12/08/2018 SUBJECTIVE: The patient feels better. Red eye is improving. She is complaining of constipation. Her breathing is better. She still has lightheadedness, but it is better than before. No chest pain. No short of breath. PHYSICAL EXAMINATION: VITAL SIGNS: Temperature 98, blood pressure 133/86, heart rate 102, respirations 20, and saturation 94% on room air. HEENT AND NECK: Head and neck exam normal. No JVD. No thyromegaly. CHEST: Clear bilaterally. CARDIAC: First sound and second sound normal. No murmur, rub, or gallop. ABDOMEN: Soft, obese, and nontender. EXTREMITIES: No edema. NEUROLOGIC: Normal. LABORATORY DATA: Blood sugar running 300-200 range. IMPRESSION AND PLAN: 1. Dizziness or presyncope. The patient seems to be improving with change in medications. We will discontinue Norvasc. She is on Cardizem 120. 2. Acute chronic obstructive pulmonary disease exacerbation, seems improving. Continue steroids. Continue inhaled bronchodilators. 3. Diabetes, continue insulin plus Levemir and insulin coverage. 4. Obstructive sleep apnea and obesity, continue bilevel positive airway pressure. 5. Hypothyroidism. Plan is to continue current therapy. Follow up clinically. Her conjunctivitis seems better, continue Tobrex ointment and solutions. 6. General weakness and unsteadiness. Continue physical therapy. We will follow up clinically. Conor Walton MD
[2018-12-09] MEDS: Tobramycin 0.3% OPH OINT OD SCH (21:29)
--- NOTE | 2018-12-09 21:33 | PN ---
DATE: 12/09/2018 SUBJECTIVE: The patient is comfortable. She is feeling better. Blood sugar is running 400. She is on IV steroids. Otherwise, she feels better. PHYSICAL EXAMINATION: VITAL SIGNS: Temperature 98.2, heart rate 73, blood pressure 123/69, respirations 20, and saturation 99%. HEENT AND NECK: Head and neck normal. No JVD. No thyromegaly. CHEST: Clear bilaterally. CARDIAC: First sound and second sound normal. ABDOMEN: Soft, obese, and nontender. EXTREMITIES: No edema. NEUROLOGIC: Normal. CURRENT MEDICATIONS: Albuterol, Antivert, hydralazine p.r.n., Brovana, calcium, Cardizem 60 mg t.i.d., Colace, Singulair, Plavix, MiraLax, Lovenox, Lipitor, Levemir, Solu-Medrol, Synthroid 125 mcg, Tobrex ointment and solution, and vitamin D. LABORATORY DATA: The patient has urine culture was negative. Chest x-ray, no active disease. IMPRESSION AND PLAN: 1. Presyncope and lightheadedness improving. Continue current therapy. We will discontinue Norvasc 5 and we will increase Cardizem 120 to 180 and we will see how the blood pressure, probably the patient will do fine with that. 2. Acute chronic obstructive pulmonary disease exacerbation. Continue IV and inhaled bronchodilators. 3. Obstructive sleep apnea, on bilevel positive airway pressure, doing well. Continue current therapy. 4. Hypercholesterolemia, hypothyroidism, and conjunctivitis improving. Continue current therapy. 5. Diabetes, continue increasing insulin coverage to medium scale coverage and continue Levemir subcutaneously daily. Continue current therapy. We will follow. The patient is doing well with physical therapy. Probably if she will get evaluated by physical therapy and seems okay by tomorrow may discharge the patient home. 6. Continue current therapy. The patient is moving her bowels. She is doing well. Continue physical therapy. Continue IV steroids. Conor Walton MD
[2018-12-09] MEDS: Hydrocerin(120 gm) TOP SCH (21:34)
[2018-12-09] MEDS: Insulin Detemir 100 units/ml Vial (Levemir) SC SCH (21:47)
[2018-12-10] MEDS: Tobramycin 0.3% OPHT SOLN OD SCH ×5 (05:22→22:44)
[2018-12-10] MEDS: Arformoterol 15 mcg/2 ml Inh Sol IH SCH ×2 (07:51→19:30)
[2018-12-10] MEDS: Insulin Lispro (humaLOG) MEDIUM Coverage SC SCH ×4 (09:22→22:43)
[2018-12-10] MEDS: Enoxaparin 40 mg Syringe SC SCH (09:22)
[2018-12-10] MEDS: MethylPREDNISolone 40 mg Vial IVP SCH ×2 (09:23→22:42)
[2018-12-10] MEDS: Levothyroxine 125 MCG TAB PO SCH (09:23)
[2018-12-10] MEDS: POLYETHYLENE GLYCOL 3350 17 GM/Dose PACKET PO SCH ×2 (09:23→18:05)
[2018-12-10] MEDS: Cholecalciferol 1,000 INTLU TAB PO SCH (09:24)
[2018-12-10] MEDS: Aspirin 325 mg EC Tablets PO SCH (09:26)
[2018-12-10] MEDS: Hydrocerin(120 gm) TOP SCH (21:03)
[2018-12-10] MEDS: Tobramycin 0.3% OPH OINT OD SCH (21:04)
--- NOTE | 2018-12-10 21:04 | CP.PCM.PN ---
Subjective - Date & Time of Evaluation Date of Evaluation: 12/10/18 Time of Evaluation: 20:51 - Subjective Subjective: I was asked to co-sign order of Meclizine 25 mg PO stat. Patient was seen. States that she has had no spinning feeling all day today since she took Antivert. Feels little lightheaded now. Has no other complaint at this time. 68 year old wohermelindo was aditted with dizziness, lightheadedness.,unsteadiness. Has PMH of: COPD. Asthma. CVA. IDDM. HTN. HLD. SUNDAR. OA. Osteoporosis. Depression. Objective - Vital Signs/Intake and Output Vital Signs (last 24 hours): Temp Pulse Resp BP Pulse Ox 98.1 F 64 20 146/82 98 12/09/18 23:25 12/10/18 18:04 12/09/18 23:25 12/10/18 18:04 12/09/18 23:25 - Medications Medications: Current Medications Albuterol Sulfate (Albuterol 0.083% Inhal Mana (2.5 Mg/3 Ml) Ud) 2.5 mg INH [id number] PRN PRN Reason: Shortness of Breath Last Admin: 12/09/18 19:20 Dose: 2.5 mg Arformoterol Tartrate (Brovana) 15 mcg IH [id number] [facility] Last Admin: 12/10/18 19:30 Dose: 15 mcg Aspirin (Ecotrin) 325 mg PO DAILY [facility] Last Admin: 12/10/18 09:26 Dose: 325 mg Atorvastatin Calcium (Lipitor) 20 mg PO DIN [facility] Last Admin: 12/10/18 18:04 Dose: 20 mg Calcium Carbonate (Caltrate) 600 mg PO DAILY [facility] Last Admin: 12/10/18 09:26 Dose: 600 mg Cholecalciferol (Vitamin D) 5,000 intlu PO DAILY [facility] Last Admin: 12/10/18 09:24 Dose: Not Given Clopidogrel Bisulfate (Plavix) 75 mg PO DAILY [facility] Last Admin: 12/10/18 09:23 Dose: 75 mg Dextrose (Dextrose 50% Inj) 0 ml IV STAT PRN; Protocol PRN Reason: Hypoglycemia Protocol Diltiazem HCl (Cardizem) 60 mg PO TID [facility] Last Admin: 12/10/18 18:04 Dose: 60 mg Docusate Sodium (Colace) 100 mg PO TID [facility] Last Admin: 12/10/18 18:04 Dose: 100 mg Enoxaparin Sodium (Lovenox) 40 mg SC DAILY [facility]; Protocol Last Admin: 12/10/18 09:22 Dose: 40 mg Famotidine (Pepcid) 20 mg PO DAILY [facility] Last Admin: 12/10/18 09:25 Dose: 20 mg Hydralazine HCl (Apresoline) 10 mg PO Q6H PRN PRN Reason: HTN Dextrose (Dextrose 5% In Water 1000 Ml) 1,000 mls @ 0 mls/hr IV .Q0M PRN; Protocol PRN Reason: Hypoglycemia Protocol Insulin Detemir (Levemir) 10 unit SC HS [facility] Last Admin: 12/09/18 21:47 Dose: 10 u Insulin Human Lispro (Humalog Med) 0 units SC [facility]; Protocol Last Admin: 12/10/18 18:03 Dose: 5 units Levothyroxine Sodium (Synthroid) 125 mcg PO DAILY [facility] Last Admin: 12/10/18 09:23 Dose: 125 mcg Meclizine HCl (Antivert) 25 mg PO TID [facility] Last Admin: 12/10/18 18:04 Dose: 25 mg Methylprednisolone (Solu-Medrol) 20 mg IVP Q12 [facility] Last Admin: 12/10/18 09:23 Dose: 20 mg Montelukast Sodium (Singulair) 10 mg PO DAILY [facility] Last Admin: 12/10/18 09:25 Dose: 10 mg Multi-Ingredient Cream (Hydrocerin Cream) 0 ea TOP HS [facility] Last Admin: 12/09/18 21:34 Dose: Not Given Non-Formulary Medication (Linagliptin [Tradjenta]) 5 mg PO DAILY [facility] Last Admin: 12/10/18 09:26 Dose: Not Given Polyethylene Glycol (Miralax) 17 gm PO BID [facility] Last Admin: 12/10/18 18:05 Dose: Not Given Tobramycin Sulfate (Tobrex 0.3% Ophth Soln) 1 drop OD 5XD [facility] Last Admin: 12/10/18 18:05 Dose: 1 drop Tobramycin Sulfate (Tobrex 0.3% Ophth Oint) 1 appl OD HS [facility] Last Admin: 12/09/18 21:29 Dose: Not Given - Labs Labs: 12/04/18 13:46 12/07/18 10:50 - Constitutional Appears: Well, No Acute Distress - Head Exam Head Exam: ATRAUMATIC, NORMAL INSPECTION, NORMOCEPHALIC - Eye Exam Eye Exam: Normal appearance - ENT Exam ENT Exam: Normal External Ear Exam - Neck Exam Neck Exam: Normal Inspection - Respiratory Exam Respiratory Exam: NORMAL BREATHING PATTERN - Cardiovascular Exam Cardiovascular Exam: absent: JVD - GI/Abdominal Exam GI & Abdominal Exam: absent: Distended - Rectal Exam Rectal Exam: Deferred - Exam Additional comments: Deferred. - Extremities Exam Extremities Exam: Normal Inspection - Back Exam Back Exam: NORMAL INSPECTION - Neurological Exam Neurological Exam: Alert, Awake, Oriented x3 - Psychiatric Exam Psychiatric exam: Normal Affect, Normal Mood - Skin Skin Exam: Normal Color Assessment and Plan - Assessment and Plan (Free Text) Assessment: Lightheadedness. Dizziness. COPD. Asthma. CVA. IDDM. HTN. HLD. SUNDAR. OA. Osteoporosis. Depression. Plan: Meclizine 25 mg PO stat dose was given. Continue present management.
[2018-12-10] MEDS: Insulin Detemir 100 units/ml Vial (Levemir) SC SCH (22:43)
[2018-12-11] MEDS: Tobramycin 0.3% OPHT SOLN OD SCH ×5 (06:32→23:11)
[2018-12-11] MEDS: Arformoterol 15 mcg/2 ml Inh Sol IH SCH ×2 (07:48→19:44)
[2018-12-11] MEDS: Insulin Lispro (humaLOG) MEDIUM Coverage SC SCH ×4 (08:48→23:10)
[2018-12-11] MEDS: Aspirin 325 mg EC Tablets PO SCH (10:13)
[2018-12-11] MEDS: POLYETHYLENE GLYCOL 3350 17 GM/Dose PACKET PO SCH ×2 (10:14→18:35)
[2018-12-11] MEDS: Levothyroxine 125 MCG TAB PO SCH (10:14)
[2018-12-11] MEDS: MethylPREDNISolone 40 mg Vial IVP SCH (10:15)
[2018-12-11] MEDS: Enoxaparin 40 mg Syringe SC SCH (10:16)
[2018-12-11] MEDS: Cholecalciferol 1,000 INTLU TAB PO SCH (10:17)
--- NOTE | 2018-12-11 13:22 | PN ---
DATE: 12/10/2018 SUBJECTIVE: The patient had severe dizziness and vertigo-like symptoms, could not stand up. She almost fell. She is still in bed and over an hour it start resolving and she starts feeling better. No other complaints. No nausea, no vomiting, no diarrhea. PHYSICAL EXAMINATION: VITAL SIGNS: Temperature 98, heart rate 72, blood pressure 136/84, respirations 18. HEENT: Head and neck normal. No JVD. No thyromegaly. CHEST: Clear bilateral. CARDIAC: First second and second sound normal. No murmur, rub, or gallop. ABDOMEN: Soft, obese, and nontender. EXTREMITIES: No edema. NEUROLOGIC: Normal. LABORATORY STUDY: Noted for blood sugar is 200 to 300 range secondary to steroids. IMPRESSION AND PLAN: 1. Probable vertigo symptoms. Continue Antivert. The patient seen by neurologist, Dr. Nguyễn, and seen by Cardiology. [facility] [place] is Dr. Christopher Adan. She is stable. We will continue Antivert every 8 hours 25 mg. The patient had carotid ultrasound, which was negative, and HCT which is not complete. Continue current therapy. 2. Acute chronic obstructive pulmonary disease exacerbations. Stable now, breathing is better. We will discontinue the Solu-Medrol. We will start the patient on p.o. prednisone. Continue inhaled bronchodilators. 3. Hypertension. Stable on Cardizem. Conor Walton MD
[2018-12-11] MEDS ORDERED: Insulin Lispro 1 UNITS/0.01 ML SC ONE (14:01)
[2018-12-11] MEDS: Albuterol 0.083% Inhal Sol (2.5 mg/3 mL) UD INH PRN (14:19)
[2018-12-11] MEDS: Insulin Detemir 100 units/ml Vial (Levemir) SC SCH (23:08)
[2018-12-11] MEDS: Hydrocerin(120 gm) TOP SCH (23:11)
[2018-12-12] MEDS: Tobramycin 0.3% OPH OINT OD SCH (00:04)
[2018-12-12] MEDS: Hydrocerin(120 gm) TOP SCH (00:05)
[2018-12-12] MEDS: Tobramycin 0.3% OPHT SOLN OD SCH ×4 (00:06→09:26)
[2018-12-12] MEDS: Arformoterol 15 mcg/2 ml Inh Sol IH SCH (08:01)
[2018-12-12 08:47] VITALS: BP 112/68; PULSE 66; TEMP 98; O2SAT 99
[2018-12-12] MEDS: Aspirin 325 mg EC Tablets PO SCH (09:22)
[2018-12-12] MEDS: Insulin Lispro (humaLOG) MEDIUM Coverage SC SCH ×2 (09:23→13:29)
[2018-12-12] MEDS: POLYETHYLENE GLYCOL 3350 17 GM/Dose PACKET PO SCH ×2 (09:24→10:12)
[2018-12-12] MEDS: Enoxaparin 40 mg Syringe SC SCH (09:24)
[2018-12-12] MEDS: Levothyroxine 125 MCG TAB PO SCH (09:25)
[2018-12-12] MEDS: Cholecalciferol 1,000 INTLU TAB PO SCH ×2 (09:26→10:12)
[2018-12-12] MEDS ORDERED: Pneumococcal 23-Valent Vaccine IM ONE (11:22)
--- NOTE | 2018-12-12 23:57 | PN ---
DATE: 12/11/2018 SUBJECTIVE: The patient did complain of dizziness and vertigo. 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 It resolved after one hour. The patient otherwise seems stable. PHYSICAL EXAMINATION VITAL SIGNS: Temperature is 98.5, heart rate is 90, blood pressure 133/77, respirations 20, saturation 98%. HEAD AND NECK: Normal. No JVD. No thyromegaly. CHEST: Clear bilateral. CARDIAC: First sound and second sounds are normal. No murmur, rub, or gallop. ABDOMEN: Soft, obese, nontender. EXTREMITIES: No edema. NEUROLOGICAL: Left hemiplegia. LABORATORY DATA: Is noted for blood sugar is in the 400. She got 20 units and later on her blood sugar started going to 270 and later on to 242. IMPRESSION AND PLAN: 1. Dizziness or vertigo symptoms. Continue Antivert. The patient needs physical therapy, as outpatient. The patient advised to go to [facility] for physical therapy. 2. Diabetes secondary to steroids for chronic obstructive pulmonary disease. We will decrease the steroid gradually. We will start the patient on p.o. prednisone 15 mg for 2 days, 10 mg for 2 days, and 5 mg for 2 days, and discontinue. 3. Hypertension, stable. Continue Cardizem CD 180 mg. The patient is doing very well otherwise. 4. History of cerebrovascular accident, left-sided. Continue Plavix and aspirin. 5. Hypothyroidism, acid reflux, vertigo, history of asthma. Continue Singulair, continue Claritin, prednisone, Pepcid, and for hypercholesterolemia she is on Zocor 40 mg. Continue current medications. We will follow up clinically. The patient will be discharged tomorrow, family problem . She still feels dizzy, so we will give her one day for more observation; however, she will be discharged in the morning. Conor Walton MD
--- NOTE | 2018-12-13 03:23 | DS ---
HISTORY OF PRESENT ILLNESS: Patient will be discharged today, 12/12/2018. She is cleared. There is no complaint. No dizziness. Prescription ready. She has no new complaints. PHYSICAL EXAMINATION: Stable. VITAL SIGNS: Temperature 98, heart rate 66, blood pressure 112/68, respiration 20, and saturating 99% on room air. HEAD AND NECK: Normal. No JVD. No thyromegaly. CHEST: Clear bilaterally. CARDIAC: First sound and second sound normal. No murmur, rub or gallop. ABDOMEN: Soft, obese, and nontender. EXTREMITIES: No edema. NEUROLOGIC: Normal. LABORATORY DATA: Blood sugar is running in 200s. The patient had urine culture, which is negative. Patient also while she was in the hospital, she was seen by neuroconsultation, Dr. Nguyễn and she had carotid ultrasound by Dr. Christopher Chavez. She also had a CT which shows old stroke, otherwise no acute bleeding. Patient shows internal carotid artery bilateral 20 to 39% stenosis, antegrade flow in both vertebral arteries. Patient is otherwise stable. Lungs x-ray was negative for any infiltrations. DISCHARGE DIAGNOSES: 1. Dizziness, vertigo type. 2. Hypertension. 3. Acute asthma exacerbation. 4. Insulin dependent diabetes. 5. Chronic obstructive pulmonary disease and asthma. 6. Obesity. 7. Cerebrovascular accident, left sided. DISCHARGE PLAN: We will discharge the patient home. Continue Verapamil, continue Antivert, continue prednisone and I will see the patient within a week of discharge. Continue nebulizer treatment 4 times a day and prednisone tapering dose. Continue current therapy. See the patient in a week. Patient should resume all her medication in addition to the above medication I mentioned, Zocor, Singulair, Trajenta, Synthroid, Pepcid, Plavix, aspirin, vitamin D, calcium carbonate, aspirin, insulin, nebulizer treatment q.i.d. Patient is on Cardizem 180 mg and also for her red eye, I gave her tobramycin drops and ointment, left eye conjunctivitis improved significantly. Continue meclizine 25 mg t.i.d. for one week. I am going to see the patient. We have also given a prescription for physical therapy to José for further treatment. Patient seems stable, goes to the bathroom by himself and advised if she did have vertigo symptoms to just hold on something and be sure she takes her medicine and go for physical therapy. Conor Walton MD
--- NOTE | 2018-12-16 14:03 | PQF ---
PROVIDER RESPONSE TEXT: Mild persistant asthma REVIEWER QUERY TEXT: Asthma Specificity and Type Asthma is documented in the Medical Record. Please specify the type and severity of asthma and indic ate if this is associated with exacerbation or status asthmaticus. Such as: -- Mild intermittent -- Mild persistent -- Moderate persistent -- Severe persistent -- Exercise induced bronchospasm -- Cough variant asthma -- Other, please specify The patient's Clinical Indicators include: Please see query. Thank you. Query created by: Abby Dang on 12/14/2018 12:08 PM Electronically signed by: Conor Walton MD 12/16/2018 2:00 PM
== END 2018-12-12 16:06 | disposition home or self-care (01) | DRG 149 ==
LOC: ED 11:43 → ERH 14:47 → 3RSO 15:24 → OBSVTOIN 12-06 13:53
PROVIDERS: ADMIT Internal Medicine; ATTEND Internal Medicine
PROC: 3E0234Z Introduction of Serum, Toxoid and Vaccine into Muscle, Percutaneous Approach (ICD-10-PCS; principal; 2018-12-12)
DX: R42 Dizziness and giddiness (principal); J45.31 Mild persistent asthma with (acute) exacerbation; J44.1 Chronic obstructive pulmonary disease with (acute) exacerbation; I69.354 Hemiplegia and hemiparesis following cerebral infarction affecting left non-dominant side; E09.65 Drug or chemical induced diabetes mellitus with hyperglycemia; T38.0X5A Adverse effect of glucocorticoids and synthetic analogues, initial encounter; E66.9 Obesity, unspecified; E03.9 Hypothyroidism, unspecified; D64.9 Anemia, unspecified; E78.00 Pure hypercholesterolemia, unspecified; E78.5 Hyperlipidemia, unspecified; F32.89 Other specified depressive episodes; F41.0 Panic disorder [episodic paroxysmal anxiety]; G47.33 Obstructive sleep apnea (adult) (pediatric); H10.30 Unspecified acute conjunctivitis, unspecified eye; I10 Essential (primary) hypertension; K21.9 Gastro-esophageal reflux disease without esophagitis; K59.00 Constipation, unspecified; M81.0 Age-related osteoporosis without current pathological fracture; R29.702 NIHSS score 2; M19.90 Unspecified osteoarthritis, unspecified site; Z63.9 Problem related to primary support group, unspecified; Z79.02 Long term (current) use of antithrombotics/antiplatelets; Z79.4 Long term (current) use of insulin; Z79.82 Long term (current) use of aspirin; Z79.890 Hormone replacement therapy; Z87.891 Personal history of nicotine dependence; Z90.710 Acquired absence of both cervix and uterus; Z23 Encounter for immunization